=== PATIENT | female | born 1955 | race Caucasian/White ===

== ENCOUNTER → 2017-04-08 | Outpatient (CLI) | payer OTHER ==
[~2017-04-08] VITALS: Ht 157.5 cm; Wt 72.6 kg
[~2017-04-08] MED LIST: ATEN25TA PO; CALC1TAB75 PO; CYAN10005 PO; ESTR1TAB15 PO; LEVO75TA5 PO; LORA10TA3 PO; MULT1TAB52 PO; NAPR550T3 PO; PHENYLEPHRINE HCL; RANI75TA95 PO; SIMV20TA3 PO
[2017-04-08 08:25] VITALS: BP 150/91
--- NOTE | 2017-04-08 13:06 | RAD ---
Indication 2 cm solid nodule in the left lobe of the thyroid. Image guided biopsy was discussed with the patient. The risks of infection and bleeding were outlined. The possibility of a nondiagnostic study was also discussed. Preliminary images were obtained. Known nodule in the left lobe of the thyroid is reproduced. Industrial [employer] images were saved. A medial to lateral biopsy approach was selected. The skin was prepped and draped in the routine fashion. Local anesthesia was accomplished with 1% lidocaine. Under ultrasound guidance 4 FNA samples with 25-gauge needles were obtained. An additional Rotex sample was obtained. The patient tolerated the procedure unremarkably. Pathology was present during the biopsy procedure and all retrieved tissue was submitted to pathology. The patient was watched in the department for approximately 15 minutes following the procedure and then discharged with appropriate instructions. IMPRESSION: Successful ultrasound-guided biopsy dominant nodule in the left lobe of the thyroid
--- NOTE | 2017-04-09 16:16 | PATHOLOGY ---
CYTOPATHOLOGY REPORT CLINICAL HISTORY: Dominant 2.0 cm nodule Left thyroid. SPECIMEN(S) RECEIVED: A.Fine needle aspiration, Left thyroid FINAL DIAGNOSIS: Left thyroid nodule fine needle aspiration, smears and cell block: - Brandon category: Benign. - Scantily cellular specimen containing several clusters of benign follicular epithelial cells, few Hurthle cells, colloid, and blood. COMMENT: The findings are consistent with an adenomatous nodule. (JPM:mgr; d/t: 04/09/17) PATHOLOGIST: Shola Wright M.D. REPORT ELECTRONICALLY SIGNED BY: Shola Wright M.D. DATE/TIME: 04/09/2017 16:15 GROSS PATHOLOGY: A. Fine needle aspiration, Left thyroid: The specimen is labeled "Marleni Proctor" and consists of two fixed slides, two air dried slides, two H and E slides. Thirty mL of red fluid in fixative from the needle rinse is also submitted and one ThinPrep slide and a cell block were prepared from this material. (clt 04.08.2017) Also received is the RNARetain vial which will be held for molecular studies if needed. FACS TEACHER(S): SHERMAN Marrufo(ASCP) INITIAL CPT CODE(S): A; 47590, 55228 Professional [facility] [place] [address] Technical services performed by [facility] at [address] [place] [address], [address] [address]. PATIENT: MARLENI PROCTOR /AGE: 1008/18/1955 (Age: 61) SEX: F PATIENT #: [id number] ALT CASE #: SPECIMEN COLLECTION DATE: 04/08/2017 SPECIMEN RECEIVED DATE: 04/08/[address] [facility] [address] [place] [address], [address] [place] [address] PHONE: [phone] DIRECTOR: Malcom Gagnon M.D. * * * END OF REPORT * * *
== END | disposition home or self-care (01) ==
LOC: US 16:13
PROVIDERS: ATTEND Family Medicine
DX: E04.1 Nontoxic single thyroid nodule (principal); E07.9 Disorder of thyroid, unspecified; R91.1 Solitary pulmonary nodule; I10 Essential (primary) hypertension
CPT/HCPCS: 76942; 88173; 88305